=== PATIENT | female | born 1960 | race African-American/Black ===

== ENCOUNTER → 2021-07-12 | Outpatient (CLI) | payer BC, OTHER ==
[~2021-07-12] MED LIST: DOXYCYCLINE 10100 MG PO; HYDROCODONE-AP1 EAC6 PO; METRONIDAZOLE500 M4 PO; NORCO 5-325 TA1 EACH PO; NORFLEX100 MG PO; ZYRTEC10 M2 PO
--- NOTE | 2021-07-12 15:56 | EKG ---
[place] [address] [address] [facility] [place] [address] ELECTROCARDIOGRAM REPORT Name: ARMIN WILSONNNA Room #: [facility]#: [id number] Admission: 07/12/21 Attend Phys: Aileen Grimaldo MD Discharge: Date of : 60 Report #: [id number] [facility] Test Date: 2021-07-12 Test Time: 14:49:03 Pat Name: ARMIN WILSON Department: Room: Gender: F Senior Office Assistant: SBULOW : 1960 Requested By: Aileen Grimaldo Order Number: [id number] : Corky Harding Measurements Intervals [place] Rate: 57 P: 51 MD: 151 QRS: -5 QRSD: 93 T: -6 QT: 444 QTc: 433 Interpretive Statements Sinus rhythm Borderline T abnormalities, anterior leads No previous ECG available for comparison Electronically Signed On 07-12-2021 15:56:18 CDT by Corky Harding [email or web address] <ELECTRONICALLY SIGNED> By: Corky Harding MD, [facility] 07/12/21 1556 1449 1449 Corky Harding MD, FACC /EPI
== END ==
LOC: CV 14:14
PROVIDERS: ATTEND Specialist
DX: Z01.818 Encounter for other preprocedural examination (principal)